=== PATIENT | female | born 1965 | race Caucasian/White ===

== ENCOUNTER 2017-04-06 11:51 | Emergency (ER) | payer BC ==
[~2017-04-06] VITALS: Ht 157.5 cm; Wt 53.2 kg
[~2017-04-06 11:51] MED LIST: LEVO50TA PO; LORA-741 PO; MULTTAB58 PO; RIZA10TA18 PO
[2017-04-06 11:55] VITALS: TEMP 36.4; Ht 157.5 cm; Wt 53.2 kg
[2017-04-06] MEDS ORDERED: MISCCAP80 PO (12:46)
[2017-04-06] MEDS ORDERED: [UNRECOGNIZED DRUG - OTHER] PO (12:46)
[2017-04-06] MEDS ORDERED: [UNRECOGNIZED DRUG - OTHER] PO (12:46)
[2017-04-06] MEDS ORDERED: CALCIUM D GLUCARATE PO (12:46)
[2017-04-06] MEDS ORDERED: [UNRECOGNIZED DRUG - OTHER] PO (12:46)
[2017-04-06] MEDS ORDERED: [UNRECOGNIZED DRUG - OTHER] PO (12:46)
[2017-04-06] MEDS ORDERED: KETOROLAC TROMETHAMINE 30 MG/ML VIAL IV STA (13:17)
[2017-04-06] MEDS ORDERED: METOCLOPRAMIDE HCL INJ 5 MG/ML 2 ML VIAL IM STA (13:17)
[2017-04-06] MEDS ORDERED: SODIUM CHLORIDE 0.9% 1000ML 2,000 ML IV STA (13:17)
[2017-04-06] MEDS ORDERED: DiphenhydrAMINE HCL 50 MG/ML VIAL IV STA (13:17)
--- NOTE | 2017-04-06 13:22 | EMERGENCY ROOM VISIT NOTE ---
History Report prepared by Tilaibtomy: Maria T Gamboa Under the Supervision of: Dr. Binh Lamar M.D. First contact with patient: 13:13 Chief Complaint: HEADACHE Stated Complaint: MIGRAINE History of Present Illness The patient is a 51 year old female who presents to the Emergency Room with complaints of intermittent migraines for four days [employer]. She notes this migraine began last night, though was able to sleep, but woke up this morning to a migraine that has not subsided. She notes neck pain, sensitivity to light and sound, nausea, vomiting, and diarrhea. She currently rates her pain a 10/10 in severity. She notes the vomiting and diarrhea are common with her migraines. She denies any fevers, chills, cough, congestion, urinary symptoms, back pain, abdominal pain, leg pain, or leg swelling. She takes Maxalt three times a week. She has taken her allotted dose for the week and has not taken any other medication for the pain. She has a history of migraines. She notes that it has been two years since her last ED visit for a migraine. Her migraine trigger is food and she is on a low inflammation diet of: no gluten, dairy, preservatives, artificial flavor or colors. She notes this diet has provided mild relief. She denies any chance of . She has a history of degenerative disk disease in her neck. She exercises regularly. She has NKDA. Source of History: patient Onset: 4 days [employer] Position: head Symptom Intensity: 10/10 Quality: other (migraine) Timing: intermittent Associated Symptoms: + neck pain, + nausea, + vomiting, + diarrhea, No fevers, No chills, No cough, No abdominal pain, No back pain, No urinary symptoms Note: She notes a migraine. She notes sensitivity to light and sound. She denies congestion, leg pain, or leg swelling. She denies . Review of Systems See HPI for pertinent positives and negatives. A total of ten systems were reviewed and were otherwise negative. Past Medical & Surgical Medical Problems: (1) Degenerative disk disease (2) Migraine Surgical Problems: (1) H/O removal of cyst Family History No pertinent family history Social History Smoking Status: Never Smoker Alcohol Use: occasionally Marital Status: Housing Status: lives with family Occupation Status: unemployed Current/Historical Medications Scheduled Probiotic Product (Probiotic), 1 CAP PO HS Rizatriptan Benzoate (Maxalt), 10 MG PO UD [Calcium D Glucarate], 1 TAB PO 2XWK [Intenzyme Forte], 1 CAP PO DAILY [Omni-Romero Efa], 1 CAP PO DAILY [Mague Gestaid], 1 DOSE PO HS [Xenostat], 1 CAP PO DAILY Allergies Coded Allergies: No Known Allergies (Unverified , 04/06/17) Physical Exam Vital Signs Date Time Temp Pulse Resp B/P (MAP) Pulse Ox O2 Delivery O2 Flow Rate FiO2 04/06/17 16:03 68 16 106/51 99 Room Air 04/06/17 14:14 72 18 112/66 97 04/06/17 11:55 36.4 73 18 125/76 98 Room Air Physical Exam GENERAL: Awake, alert, uncomfortable-appearing, in no distress HENT: Normocephalic, atraumatic. Oropharynx shows dry mucus membranes. EYES: Normal conjunctiva. Sclera non-icteric. NECK: Supple. No nuchal rigidity. FROM. No JVD. Mild left paraspinal tenderness to occipital scalp. No midline tenderness. RESPIRATORY: Clear to auscultation. CARDIAC: Regular rate, normal rhythm. Extremities warm and well perfused. Pulses equal. ABDOMEN: Soft, non-distended. No tenderness to palpation. No rebound or guarding. No masses. RECTAL: Deferred. MUSCULOSKELETAL: Chest examination reveals no tenderness. The back is symmetrical on inspection without obvious abnormality. There is no CVA tenderness to palpation. No joint edema. LOWER EXTREMITIES: Calves are equal size bilaterally and non-tender. No edema. No discoloration. NEURO: Normal sensorium. No sensory or motor deficits noted. SKIN: No rash or jaundice noted. Medical Decision & Procedures Medications Administered Medications (Trade) Dose Ordered Sig/Kathia Route Start Time Stop Time Status Last Admin Dose Admin Sodium Chloride 2,000 ml @ 999 mls/hr Q2H1M STAT IV 04/06/17 13:17 04/06/17 15:17 DC 04/06/17 13:32 999 MLS/HR Metoclopramide HCl (Reglan Inj) 10 mg NOW STAT IM 04/06/17 13:17 04/06/17 13:22 DC 04/06/17 13:36 10 MG Ketorolac Tromethamine (Toradol Inj) 15 mg NOW STAT IV 04/06/17 13:17 04/06/17 13:22 DC 04/06/17 13:36 15 MG Diphenhydramine HCl (Benadryl Inj) 25 mg NOW STAT IV 04/06/17 13:17 04/06/17 13:22 DC 04/06/17 13:37 25 MG ED Course 1313: The patient was evaluated in room C10. A complete history and physical exam was performed. 1612: I reassessed the patient at this time. She is feeling better and resting comfortably. I discussed the results and treatment plan with the patient. I answered all pertaining questions that she had. She expressed understanding and verbalized agreement. The patient will be discharged home. Medical Decision I reviewed the patient's past medical history, medications, and the nursing notes as described above. The patient's presentation and history were concerning for migraine, intracranial hemorrhage, tension headache, temporal arteritis, dehydration, and electrolyte abnormalities. The patient is a 51-year-old woman with a past medical history of migraines presents emergency Department with intermittent migraines over the past week per hpi. Of note patient reports these are similar to her typical migraines. On exam the patient is uncomfortable but no acute distress, afebrile stable vital signs. Neck is supple with full range of motion. Neuro intact. Patient given migraine cocktail with good effect. Patient requesting discharge. Patient unable to wait to receive discharge instructions so left before instructions given. Medication Reconcilliation Current Medication List: was personally reviewed by me Blood Pressure Screening Patient's blood pressure: Normal blood pressure Impression Primary Impression: Migraine Scribe Attestation The scribe's documentation has been prepared under my direction and personally reviewed by me in its entirety. I confirm that the note above accurately reflects all work, treatment, procedures, and medical decision making performed by me. Departure Information Dispostion Home / Self-Care Referrals No Doctor, Assigned (PCP) Forms HOME CARE DOCUMENTATION FORM, IMPORTANT VISIT INFORMATION Patient Instructions ED Headache Migraine, My [facility] Additional Instructions Please follow up with your primary care physician in the next 1-3 days for re- evaluation. Otherwise, your exam did not show signs of an emergent condition at this time. Continue your medications as prescribed. Ensure hydration. Return to the emergency department for worsening symptoms as described in the accompanying instructions.
[2017-04-06 16:03] VITALS: BP 106/51; PULSE 68; O2SAT 99
== END 2017-04-06 16:12 | disposition home or self-care (01) ==
LOC: C.EDB 11:53 → C.EDC 16:12
DX: G43.909 Migraine, unspecified, not intractable, without status migrainosus (principal); Z98.890 Other specified postprocedural states; R19.7 Diarrhea, unspecified

== ENCOUNTER → 2017-09-09 | Outpatient (CLI) | payer BC ==
[~2017-09-09] MED LIST changes: +CALCIUM D GLUCARATE PO; -LEVO50TA PO; -LORA-741 PO; +MISCCAP80 PO; -MULTTAB58 PO; +[UNRECOGNIZED DRUG - OTHER] PO; +[UNRECOGNIZED DRUG - OTHER] PO; +[UNRECOGNIZED DRUG - OTHER] PO; +[UNRECOGNIZED DRUG - OTHER] PO
--- NOTE | 2017-09-10 15:24 | MAMMOGRAPHY REPORT ---
BILATERAL DIGITAL SCREENING MAMMOGRAM TOMOSYNTHESIS WITH CAD: 09/09/2017 CLINICAL HISTORY: Routine screening. Patient has no complaints. TECHNIQUE: Breast tomosynthesis in addition to standard 2D mammography was performed. Current study was also evaluated with a Computer Aided Detection (CAD) system. COMPARISON: Comparison is made to exams dated: 08/17/2015 mammogram, 09/02/2013 mammogram, 09/01/2012 ruth mogram, 08/22/2011 mammogram, 08/20/2010 mammogram, and 06/12/2009 ultrasound - [facility] nter. BREAST COMPOSITION: There are scattered areas of fibroglandular density in both breasts. FINDINGS: The parenchymal pattern is unchanged. No developing mass, architectural distortion or clus ter of suspicious microcalcifications is seen in either breast. IMPRESSION: ACR BI-RADS CATEGORY 2: BENIGN There is no mammographic evidence of malignancy. A 1 year screening mammogram is recommended. The pa tient will receive written notification of the results. Approximately 10% of breast cancers are not detected with mammography. A negative mammographic report should not delay biopsy if a clinically suggestive mass is present. Yesenia Chan M.D. ay/:09/09/2017 15:36:10 Pin Drafter: Fernando Desouza, M, [facility] letter sent: Normal 1/2 BI-RADS Code: ACR BI-RADS Category 2: Benign
== END | disposition home or self-care (01) ==
LOC: C.MAMM 14:47
PROVIDERS: ATTEND Obstetrics & Gynecology
DX: Z12.31 Encounter for screening mammogram for malignant neoplasm of breast (principal)